=== PATIENT | male | born 1985 | race Caucasian/White ===

== ENCOUNTER 2017-08-15 17:26 | Emergency (ER) | payer OTHER ==
[~2017-08-15] VITALS: Ht 180.3 cm; Wt 79.4 kg
[~2017-08-15 17:26] MED LIST: Lotrisone Cream45 GM TOP
[2017-08-15] MEDS ORDERED: ERYT1OIN RIGHTEYE (18:19)
== END 2017-08-15 18:27 | disposition home or self-care (01) ==
LOC: ER 17:26
DX: H01.001 Unspecified blepharitis right upper eyelid (principal); Z87.891 Personal history of nicotine dependence
CPT/HCPCS: 99282